=== PATIENT | female | born 1970 | race Hispanic/Latino ===

== ENCOUNTER → 2017-07-19 | Outpatient (CLI) | payer OTHER ==
[~2017-07-19] MED LIST: CALC-687 PO; CARI350T26 PO; CELE200 PO; CYAN10009 PO; DIPH25TA20 PO; DOCU100C33 PO; ERGO500014 PO; FAMO40TA7 PO; FERR-82 PO; FOLI1TAB15 PO; HYDR-2132 PO; LORA1TAB3 PO; LORA2TAB2 PO; MULT-1146 PO; PREG25 PO; PROG100C6 PO; TRAZ-144 PO
== END | disposition home or self-care (01) ==
LOC: RAH 11:25
PROVIDERS: ATTEND Family Medicine
DX: Z12.31 Encounter for screening mammogram for malignant neoplasm of breast (principal)
CPT/HCPCS: 77067

== ENCOUNTER → 2018-11-21 | Outpatient (CLI) | payer OTHER ==
[~2018-11-21] MED LIST changes: -TRAZ-144 PO; +TRAZ-185 PO
== END | disposition home or self-care (01) ==
LOC: OIH 11:16
PROVIDERS: ATTEND Internal Medicine
DX: M20.11 Hallux valgus (acquired), right foot (principal); M19.042 Primary osteoarthritis, left hand; M19.041 Primary osteoarthritis, right hand; M54.5 Low back pain; M06.4 Inflammatory polyarthropathy
CPT/HCPCS: 73130; 73630

== ENCOUNTER → 2019-03-23 | Outpatient (CLI) | payer OTHER ==
[~2019-03-23] MED LIST changes: +CYAN-52 PO; -CYAN10009 PO; +PROG100C11 PO; -PROG100C6 PO
== END | disposition home or self-care (01) ==
LOC: OIH 15:23
PROVIDERS: ATTEND Family Medicine
DX: M25.522 Pain in left elbow (principal)
CPT/HCPCS: 73080

== ENCOUNTER → 2019-08-22 | Outpatient (CLI) | payer OTHER | END | disposition home or self-care (01) | LOC: SHCH 11:51 | PROVIDERS: ATTEND Internal Medicine Cardiovascular Disease | DX: R07.9 Chest pain, unspecified (principal) | CPT/HCPCS: 93306 ==

== ENCOUNTER → 2019-09-04 | Outpatient (CLI) | payer OTHER | END | disposition home or self-care (01) | LOC: OIH 10:03 | PROVIDERS: ATTEND Internal Medicine Cardiovascular Disease | DX: Z13.6 Encounter for screening for cardiovascular disorders (principal) | CPT/HCPCS: 75571 ==

== ENCOUNTER → 2020-03-21 | Outpatient (CLI) | payer OTHER | END | disposition home or self-care (01) | LOC: RAH 13:25 | PROVIDERS: ATTEND Family Medicine | DX: M19.031 Primary osteoarthritis, right wrist (principal) | CPT/HCPCS: 73130 ==

== ENCOUNTER → 2020-07-11 | Outpatient (CLI) | payer MEDICARE, OTHER | END | disposition home or self-care (01) | LOC: RAH 13:09 | PROVIDERS: ATTEND Family Medicine | DX: N63.22 Unspecified lump in the left breast, upper inner quadrant (principal) ==

== ENCOUNTER → 2020-09-19 | Outpatient (CLI) | payer MEDICARE ==
[2020-09-19 09:08] LABS: INR 1.06 (0.85-1.15); PROTHROMBIN TIME 11.5 SEC (9.6-11.6)
[2020-09-19 09:10] LABS: PARTIAL THROMBOPLASTIN TIME 26.3 SEC (26.3-35.5)
== END | disposition home or self-care (01) ==
LOC: RAH 08:04
PROVIDERS: ATTEND Family Medicine
DX: N63.22 Unspecified lump in the left breast, upper inner quadrant (principal); R92.8 Other abnormal and inconclusive findings on diagnostic imaging of breast; R92.2 Inconclusive mammogram
CPT/HCPCS: 36415; 76642; 85610; 85730